=== PATIENT | male | born 1995 | race Caucasian/White ===

== ENCOUNTER 2019-06-14 11:23 | Emergency (ER) | payer MEDICAID ==
[~2019-06-14] VITALS: Ht 185.4 cm; Wt 65.8 kg
[2019-06-14 11:32] VITALS: BP 132/80
[2019-06-14] MEDS ORDERED: SODIUM CHLORIDE 0.9% 1,000 ML IV ONE ×2 (12:15→13:15)
[2019-06-14] MEDS ORDERED: ONDANSETRON HCL 4 MG/2 ML VIAL ONE (12:39)
[2019-06-14] MEDS ORDERED: ONDANSETRON HCL 4 MG/2 ML VIAL IV ONE (12:45)
== END 2019-06-14 13:13 | disposition home or self-care (01) ==
LOC: EEVIPCON 11:23 → ER 11:23
DX: R11.2 Nausea with vomiting, unspecified (principal); R19.7 Diarrhea, unspecified; R42 Dizziness and giddiness
CPT/HCPCS: 96361; 96374; 99283; J2405; J7030